=== PATIENT | female | born 1980 | race Hispanic/Latino ===

== ENCOUNTER 2024-04-30 11:11 | Emergency (ER) | payer BC ==
[~2024-04-30] VITALS: Ht 160 cm; Wt 88.9 kg
--- NOTE | 2024-04-30 12:06 | EKG ---
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
[2024-04-30 12:57] LABS: APPEARANCE,URINE CLOUDY (CLEAR); BILIRUBIN,URINE NEGATIVE (NEGATIVE); COLOR,URINE YELLOW (YELLOW); GLUCOSE, URINE (UA) NEGATIVE (NEGATIVE); KETONES,URINE 10 mg/dL (NEGATIVE); LEUKOCYTE ESTERASE ,URINE NEGATIVE Leu/uL (NEGATIVE); NITRATE,URINE NEGATIVE (NEGATIVE); OCCULT BLOOD,URINE MODERATE (NEGATIVE); PH,URINE 7.5 (5.0-8.0); PROTEIN,URINE 70 mg/dL (NEGATIVE); UROBILINOGEN,URINE 0.2 mg/dL (0.2-1.0)
[2024-04-30 12:58] LABS: BASOPHILS # (AUTO) 0.07 K/uL (0.00-0.20); BASOPHILS % (AUTO) 0.6 % (0.0-5.0); EOSINOPHILS # (AUTO) 0.18 K/uL (0.00-0.70); EOSINOPHILS % (AUTO) 1.5 % (0.0-8.0); HEMATOCRIT 32.3 % (36-48); IMMATURE GRANULOCYTE ABSOLUTE 0.05 K/uL (0-1); LYMPHOCYTES # (AUTO) 2.3 K/uL (1.0-4.8); LYMPHOCYTES % (AUTO) 18.5 % (21.0-51.0); MEAN CORPUSCULAR HEMOGLOBIN 25.5 pg (27.0-33.0); MEAN CORPUSCULAR HGB CONC 31.6 g/dL (32.0-36.0); MEAN CORPUSCULAR VOLUME 80.8 fL (79-99); MONOCYTES # (AUTO) 0.7 K/uL (0.1-1.0); NEUTROPHILS # (AUTO) 8.9 K/uL (1.8-7.7); PLATELET COUNT (AUTO) 327 K/uL (130-400); RED CELL DISTRIBUTION WIDTH 15.5 % (11.0-15.5); WHITE BLOOD COUNT (AUTO) 12.2 K/uL (4.8-10.8)
[2024-04-30 13:01] LABS: ADD UA MICROSCOPIC YES
[2024-04-30 13:03] LABS: CREATININE 0.7 mg/dL (0.5-1.0)
[2024-04-30 13:06] LABS: MUCUS,URINE MOD LPF (None Seen); RBC,URINE TNTC /HPF (0-1); SQUAMOUS EPITHELIAL CELL,UR MOD /HPF (0-2)
--- NOTE | 2024-04-30 13:07 | HMCIMG ---
CT HEAD/BRAIN W/O CONTRAST HISTORY: Near syncope COMPARISON: None TECHNIQUE: Multiple sequential axial images of the head were obtained from the base of the skull through vertex. Patient was not given contrast through intravenous route. FINDINGS: The ventricles and extraventricular CSF spaces are nondilated for patient's age. There is no midline shift, mass effect or herniation. No acute intracranial bleed is seen. There is left sphenoid sinus disease with air-fluid level. IMPRESSION: 1. No acute intracranial bleed is seen. CT was performed with one or more following dose reduction techniques: automated exposure control, adjustment of the mA and kv according to patient's size, or use of a iterative reconstruction technique.
[2024-04-30 13:08] LABS: MAGNESIUM 1.6 mg/dL (1.80-2.40)
--- NOTE | 2024-04-30 14:31 | ERN ---
General Chief Complaint: Dizzy/Light Headed Stated Complaint: LEFT BACK PAIN,PASSING OUT Time Seen by MD: 11:35 Time Seen by Midlevel: 11:35 Source: patient History of Present Illness Initial Comments Patient is a 43-year-old female presenting to the emergency department after a near-syncope episode that occurred earlier today. Patient was seen at [facility] earlier this week and was found to have a left ureter stone. She was started on tamsulosin and ketorolac. She reports taking one dose today and shortly after started having dizzy spells and had a near-syncope episode. Denies any chest pain, shortness of breath, or any other symptoms. Allergies: Coded Allergies: No Known Allergies (Unverified Allergy, Unknown, 04/30/24) Past Medical History Past Medical History: Depression, Kidney Stone Past Surgical History: BTL Female( History) LMP: Apr 27, 2024 ROS Dictation CONSTITUTIONAL: Negative except for HPI HEAD/FACE: Negative except for HPI EENT: Negative except for HPI RESPIRATORY: Negative except for HPI GASTROINTESTINAL/ABDOMINAL: Negative except for HPI GENITOURINARY: Negative except for HPI MUSCULOSKELETAL: Negative except for HPI INTEGUMENTARY: Negative except for HPI NEUROLOGICAL/PSYCH: Negative except for HPI HEMATOLOGIC/LYMPHATIC: Negative except for HPI All Systems Negative, Except as noted above. 13 point review of systems assessed and all negative except for above. Physical Exam Physical Exam Dictation Vital Signs reviewed General Appearance: Alert, oriented x 3, no acute distress, well developed, nourished. Head and Face: non-traumatic. Eyes: PERRL, pink conjunctivas, eyelid no trauma, anterior chamber with arcus senilis. Ears: Pinnas intact and no signs of trauma or erythema ear canals clear and no discharge TM no erythema Nose: No discharge, no bleeding. Oropharynx: Mouth normal, tongue pink, pharynx clear,no erythema, tonsils no exudates, no abscesses noted, mucous membrane moist Neck: Supple, non-tender, no thyromegaly, no masses, no JVD, no bruits Breast:Deferred Chest:No tenderness, no crepitus, no paradoxical movement, no retractions Lungs:Clear, well-ventilated, symmetric, no rales, no wheezing, no rhonchi, no stridor, good breath sounds bilaterally Heart: Regular rate, regular rhythm, no murmur, no gallops Vascular: no peripheral edema, Abdomen: Soft, positive bowel sounds, nondistended, no guarding, nontender, no rebound, no masses no hepatomegaly, no splenomegaly, no Hendrix's sign, no hernias. Rectal: Deferred Genital: Deferred Neurological: Normal speech, motor function intact, sensory function intact Musculoskeletal: Neck nontender, full range of motion, back nontender, full range of motion, Extremities: nontender, full range of motion Skin: Color pink, dry, no turgor, no rash, no lacerations, no abrasions, no contusions. Lymphatic: Deferred Results Laboratory and Microbiology Lab and Micro Result Laboratory Tests Test 04/30/24 12:40 White Blood Count 12.2 K/uL (4.8-10.8) H Red Blood Count 4.00 MIL/uL (4.00-5.50) Hemoglobin 10.2 g/dL (12.0-16.0) L Hematocrit 32.3 % (36-48) L Mean Corpuscular Volume 80.8 fL (79-99) Mean Corpuscular Hemoglobin 25.5 pg (27.0-33.0) L Mean Corpuscular Hemoglobin Concent 31.6 g/dL (32.0-36.0) L Red Cell Distribution Width 15.5 % (11.0-15.5) Platelet Count 327 K/uL (130-400) Mean Platelet Volume 11.8 fL (7.5-10.5) H Immature Granulocyte % (Auto) 0.4 % (0-1) Neutrophils (%) (Auto) 73.0 % (40.0-77.0) Lymphocytes (%) (Auto) 18.5 % (21.0-51.0) L Monocytes (%) (Auto) 6.0 % (3.0-13.0) Eosinophils (%) (Auto) 1.5 % (0.0-8.0) Basophils (%) (Auto) 0.6 % (0.0-5.0) Neutrophils # (Auto) 8.9 K/uL (1.8-7.7) H Lymphocytes # (Auto) 2.3 K/uL (1.0-4.8) Monocytes # (Auto) 0.7 K/uL (0.1-1.0) Eosinophils # (Auto) 0.18 K/uL (0.00-0.70) Basophils # (Auto) 0.07 K/uL (0.00-0.20) Absolute Immature Granulocyte (auto 0.05 K/uL (0-1) Nucleated Red Blood Cells 0.0 % (0.0-0.19) Urine Color YELLOW (YELLOW) Urine Appearance CLOUDY (CLEAR) H Urine pH 7.5 (5.0-8.0) Urine Specific [place] 1.028 (1.001-1.031) Urine Protein 70 mg/dL (NEGATIVE) H Urine Glucose (UA) NEGATIVE mg/dL (NEGATIVE) Urine Ketones 10 mg/dL (NEGATIVE) H Urine Occult Blood MODERATE (NEGATIVE) H Urine Nitrate NEGATIVE (NEGATIVE) Urine Bilirubin NEGATIVE mg/dL (NEGATIVE) Urine Urobilinogen 0.2 mg/dL (0.2-1.0) Urine Leukocyte Esterase NEGATIVE Jorge/uL Urine RBC TNTC /HPF (0-1) H Urine WBC 2-5 /HPF (0-1) H Urine Squamous Epithelial Cells MOD /HPF (0-2) Urine Bacteria None /HPF (None Seen) Sodium Level 140 mmol/L (136-145) Potassium Level 4.0 mmol/L (3.5-5.1) Chloride Level 102 mmol/L (101-111) Carbon Dioxide Level 32 mmol/L (21-32) Blood Urea Nitrogen 13 mg/dL (7-18) Creatinine 0.7 mg/dL (0.5-1.0) Glomerular Filtration Rate Calc 111 mL/min (>90) Random Glucose 99 mg/dL (70-105) Total Calcium 9.5 mg/dL (8.5-10.1) Magnesium Level 1.60 mg/dL (1.80-2.40) L Total Creatine Kinase 72 U/L (21-232) Labs Reviewed?: Yes MDM MDM: Differential diagnosis: Anemia, urinary tract infection, dehydration, intracranial bleed, medication reaction There are no social concerns with this patient. Prescription drug management Prescriptions will include: None Medical management and examination interpretation discussions were had by me with other qualified healthcare professionals as indicated for the patient's care. ED Course Orders Procedure Category Date Status Time 12 Lead Ekg Tracing- EKG 04/30/24 Complete Technical 11:58 Cbc With Differential LAB 04/30/24 Complete 11:58 Basic Metabolic Panel LAB 04/30/24 Complete 11:58 Creatine Kinase, Total LAB 04/30/24 Complete 11:58 Urinalysis Profile LAB 04/30/24 Complete 11:58 Magnesium LAB 04/30/24 Complete 11:58 Ct Head/Brain W/O CT 04/30/24 Resulted Contrast 11:58 Vital Signs Date Time Temp Pulse Resp B/P (MAP) Pulse Ox O2 Delivery O2 Flow Rate FiO2 04/30/24 12:00 98.2 64 16 124/80 98 Room Air* 0 21 04/30/24 11:23 98.1 91 16 118/81 100 Room Air 0 DX & DISP Disposition: Discharge Departure Impression: Primary Impression: Medication reaction Additional Impressions: Dizziness, Near syncope Condition: Stable Additional Instructions: Blood work today is stable. Your symptoms are most likely related to a medication reaction. Follow up with your primary care doctor in 2-3 days for repeat evaluation. Return to the ER for any new or worsening symptoms Referrals: BAN BECKWITH PA-C (PCP) Time of Disposition: 14:29 I have reviewed the case, and I agree with, Diagnosis and Plan I performed the substantive portion of the visit. I have reviewed and personally made and approve the management plan that is documented in the note by myself or the ANASTASIYA. I acknowledge for responsibility for the patient's management plan. OSKAR TOURE Apr 30, 2024 14:31
[2024-04-30 15:00] VITALS: BP 117/78; PULSE 82; RESP 18; TEMP 98.6; O2SAT 98
== END 2024-04-30 15:18 | disposition home or self-care (01) ==
LOC: EDH 11:11
DX: R42 Dizziness and giddiness (principal); R55 Syncope and collapse; T39.8X5A Adverse effect of other nonopioid analgesics and antipyretics, not elsewhere classified, initial encounter; M54.50 Low back pain, unspecified; Z98.51 Tubal ligation status; Y92.89 Other specified places as the place of occurrence of the external cause
CPT/HCPCS: 36415; 70450; 80048; 81001; 82550; 83735; 85025; 93005; 99284

== ENCOUNTER 2024-09-08 21:45 | Emergency (ER) | payer BC ==
[~2024-09-08] VITALS: Ht 160 cm; Wt 91.6 kg
[~2024-09-08 21:45] MED LIST: DULO60CA64 PO; TAMS-55 PO
[2024-09-08] MEDS: ondanSETRON 4MG INJ ONE (22:25)
[2024-09-08] MEDS: ondanSETRON 4MG INJ IVP ONE (22:27)
[2024-09-08] MEDS: 0.9%NACL 1000ML 1,000 ML IV ONE (22:39)
[2024-09-08] MEDS: morPHINE 4 MG SYG IM ONE (22:40)
[2024-09-08 22:42] LABS: BASOPHILS # (AUTO) 0.09 K/uL (0.00-0.20); BASOPHILS % (AUTO) 0.6 % (0.0-5.0); EOSINOPHILS # (AUTO) 0.24 K/uL (0.00-0.70); EOSINOPHILS % (AUTO) 1.7 % (0.0-8.0); HEMATOCRIT 33.2 % (36-48); IMMATURE GRANULOCYTE ABSOLUTE 0.12 K/uL (0-1); LYMPHOCYTES # (AUTO) 1.9 K/uL (1.0-4.8); LYMPHOCYTES % (AUTO) 13.7 % (21.0-51.0); MEAN CORPUSCULAR HEMOGLOBIN 25.4 pg (27.0-33.0); MEAN CORPUSCULAR HGB CONC 31.3 g/dL (32.0-36.0); MONOCYTES # (AUTO) 0.9 K/uL (0.1-1.0); MONOCYTES % (AUTO) 6.1 % (3.0-13.0); NEUTROPHILS # (AUTO) 10.9 K/uL (1.8-7.7); PLATELET COUNT (AUTO) 309 K/uL (130-400); RED CELL DISTRIBUTION WIDTH 19.1 % (11.0-15.5); WHITE BLOOD COUNT (AUTO) 14.1 K/uL (4.8-10.8)
[2024-09-08 23:05] LABS: CREATININE 0.7 mg/dL (0.5-1.0); POTASSIUM 4.3 mmol/L (3.5-5.1)
[2024-09-09] MEDS: cefTRIAXone 1G VIAL IVPB ONE (00:16)
[2024-09-09] MEDS: 0.9%NACL 1000ML 1,000 ML IV ONE (00:16)
[2024-09-09 00:37] LABS: ADD UA MICROSCOPIC YES; APPEARANCE,URINE CLOUDY (CLEAR); BILIRUBIN,URINE NEGATIVE (NEGATIVE); COLOR,URINE YELLOW (YELLOW); GLUCOSE, URINE (UA) NEGATIVE (NEGATIVE); KETONES,URINE 5 mg/dL (NEGATIVE); LEUKOCYTE ESTERASE ,URINE 250 Leu/uL (NEGATIVE); NITRATE,URINE NEGATIVE (NEGATIVE); OCCULT BLOOD,URINE LARGE (NEGATIVE); PROTEIN,URINE 200 mg/dL (NEGATIVE); UROBILINOGEN,URINE 0.2 mg/dL (0.2-1.0)
[2024-09-09 00:49] LABS: BACTERIA,URINE MOD /HPF (None Seen); MUCUS,URINE MANY LPF (None Seen); RBC,URINE TNTC /HPF (0-1); SQUAMOUS EPITHELIAL CELL,UR RARE /HPF (0-2)
--- NOTE | 2024-09-09 01:12 | ERN ---
ED Note History of Present Illness Stated Complaint: LLQ PAIN ONSET 1200 Chief Complaint: Abdominal Pain Time Seen by MD: 22:20 Time Seen by Midlevel: 22:21 Dictation: 43-year-old female presents to the emergency department due to reported having pain to the left lateral chest wall area and flank which he takes a deep breath. Patient states that the onset of the symptoms was today at 12:00 p.m.. She states that she does have a nephrostomy tube and does not know whether or not this might be related to it. Patient reports having some chills but no confirmed fever. Today, she denies having any chest pressure or shortness of breath. She states that she is pending for referral by her PCP to have the nephrostomy tube removed. Upon initial evaluation, the patient presents mildly uncomfortable looking. Allergies: Coded Allergies: No Known Allergies (Unverified Allergy, Unknown, 04/30/24) Emergency Care OBSERVER HELPER: None Home Meds Active Scripts Tamsulosin HCl (Flomax) 0.4 Mg Cap.er.24h, 1 CAP PO DAILY for 30 Days, #30 CAP 0 Refills Prov:JOHANNE SHELTON MD 08/31/24 Reported Medications Duloxetine HCl (Duloxetine HCl) 60 Mg Capsule.dr, 1 CAP PO DAILY for 30 Days, #30 CAP 0 Refills 08/30/24 Past Medical History Past Medical History: Depression, Kidney Stone Additional Past Medical Hx: L NEPHROSTOMY TUBE Surgical History: BTL LMP: September 08, 2024 RN Note Reviewed/Agreed w/PFSH: Yes Review of System Dictation Cardiovascular: Left lateral chest wall pain Respiratory: Painful breathing Abdomen/GI: Left flank pain Initial Vital Sign VS Vital Signs Date Time Temp Pulse Resp B/P (MAP) Pulse Ox O2 Delivery O2 Flow Rate FiO2 09/08/24 21:50 99.9 117 18 151/112 99 0 Physical Exam Dictation General: awake, alert, NAD Head/Face: Normocephalic, atraumatic Eyes: PERRL, EOMI ENT: Oral mucosa moist Neck: Trachea midline, supple Cardiovascular: RRR, no edema Chest: Left lateral wall tenderness Respiratory: Symmetrical, non-labored Abdomen: Soft, non-tender, non-distended, no guarding. Skin: Warm, dry, good turgor, no rash MS/Extremity: Pulses equal, no cyanosis, neurovascular intact, FROM Neuro: COAx4, GCS 15, steady gait, Psych: Normal behavior, mood, and affect normal Results (Laboratory/Radiology) Laboratory/Radiology Laboratory Tests Test 09/08/24 22:32 09/08/24 23:22 09/09/24 00:22 White Blood Count 14.1 K/uL (4.8-10.8) H Red Blood Count 4.10 MIL/uL (4.00-5.50) Hemoglobin 10.4 g/dL (12.0-16.0) L Hematocrit 33.2 % (36-48) L Mean Corpuscular Volume 81.0 fL (79-99) Mean Corpuscular Hemoglobin 25.4 pg (27.0-33.0) L Mean Corpuscular Hemoglobin Concent 31.3 g/dL (32.0-36.0) L Red Cell Distribution Width 19.1 % (11.0-15.5) H Platelet Count 309 K/uL (130-400) Mean Platelet Volume 11.6 fL (7.5-10.5) H Immature Granulocyte % (Auto) 0.9 % (0-1) Neutrophils (%) (Auto) 77.0 % (40.0-77.0) Lymphocytes (%) (Auto) 13.7 % (21.0-51.0) L Monocytes (%) (Auto) 6.1 % (3.0-13.0) Eosinophils (%) (Auto) 1.7 % (0.0-8.0) Basophils (%) (Auto) 0.6 % (0.0-5.0) Neutrophils # (Auto) 10.9 K/uL (1.8-7.7) H Lymphocytes # (Auto) 1.9 K/uL (1.0-4.8) Monocytes # (Auto) 0.9 K/uL (0.1-1.0) Eosinophils # (Auto) 0.24 K/uL (0.00-0.70) Basophils # (Auto) 0.09 K/uL (0.00-0.20) Absolute Immature Granulocyte (auto 0.12 K/uL (0-1) Nucleated Red Blood Cells 0.0 % (0.0-0.19) Red Blood Cell Morphology See comments Sodium Level 138 mmol/L (136-145) Potassium Level 4.3 mmol/L (3.5-5.1) Chloride Level 104 mmol/L (101-111) Carbon Dioxide Level 24 mmol/L (21-32) Blood Urea Nitrogen 18 mg/dL (7-18) Creatinine 0.7 mg/dL (0.5-1.0) Glomerular Filtration Rate Calc 111 mL/min (>90) Random Glucose 101 mg/dL (70-105) Total Calcium 9.3 mg/dL (8.5-10.1) Troponin I High Sensitivity < 4 ng/L (4-50) L Serum Test, Qualitative NEGATIVE (NEGATIVE) Urine Color YELLOW (YELLOW) Urine Appearance CLOUDY (CLEAR) H Urine pH 6.0 (5.0-8.0) Urine Specific [place] 1.029 (1.001-1.031) Urine Protein 200 mg/dL (NEGATIVE) H Urine Glucose (UA) NEGATIVE mg/dL (NEGATIVE) Urine Ketones 5 mg/dL (NEGATIVE) H Urine Occult Blood LARGE (NEGATIVE) H Urine Nitrate NEGATIVE (NEGATIVE) Urine Bilirubin NEGATIVE mg/dL (NEGATIVE) Urine Urobilinogen 0.2 mg/dL (0.2-1.0) Urine Leukocyte Esterase 250 Jorge/uL (NEGATIVE) H Urine RBC TNTC /HPF (0-1) H Urine WBC 11-25 /HPF (0-1) H Urine Squamous Epithelial Cells RARE /HPF (0-2) Urine Bacteria MOD /HPF (None Seen) Labs Reviewed?: Yes CT Scan Comment: CT chest/abdomen/pelvis without contrast. No abnormalities noted to the chest. CT abdomen without pelvis without contrast with a persistent left mid ureteral cm stone without hydronephrosis ED Course ED Course Orders Procedure Category Date Status Time Ondansetron 4mg Inj PHA 09/08/24 Complete (Zofran 4mg Inj) 22:30 Cbc With Differential LAB 09/08/24 Complete 22:14 Basic Metabolic Panel LAB 09/08/24 Complete 22:14 Urinalysis Profile LAB 09/08/24 Complete 22:14 Ondansetron 4mg Inj PHA 09/08/24 Complete (Zofran 4mg Inj) 22:16 Troponin I High LAB 09/08/24 Complete Sensitivity 22:30 Chest 1vw RAD 09/08/24 Taken 22:30 Morphine 4mg Syg PHA 09/08/24 Complete (Morphine 4mg Syg) 23:00 0.9%Nacl 1000ml (Ns PHA 09/08/24 Complete 1000ml) 23:00 Testing, LAB 09/08/24 Complete Serum Hcg 23:09 Ct Chest/Abd/Pelv W/O CT 09/08/24 Taken Contrast 23:51 Ceftriaxone 1g Vial PHA 09/09/24 Complete (Rocephine 1g Inj) 00:00 0.9%Nacl 1000ml (Ns PHA 09/09/24 Complete 1000ml) 00:00 Culture Urine MIESHA 09/09/24 In Process 00:37 Current Medications Medications (Trade) Dose Ordered Sig/Theodore Route PRN Reason Start Time Stop Time Status Last Admin Dose Admin Ceftriaxone Sodium (ROCEphine 1G INJ) 1 gm ONCE ONCE IVPB 09/09/24 00:00 09/09/24 00:01 DC 09/09/24 00:16 Morphine Sulfate (morPHINE 4MG SYG) 4 mg ONCE ONCE IM 09/08/24 23:00 09/08/24 23:01 DC 09/08/24 22:40 Ondansetron HCl (zoFRAN 4MG INJ) 4 mg ONCE ONCE IVP 09/08/24 22:30 09/08/24 22:31 DC 09/08/24 22:27 Ondansetron HCl (zoFRAN 4MG INJ) 4 mg STK-MED ONCE .ROUTE 09/08/24 22:16 09/08/24 22:18 DC Sodium Chloride 1,000 ml @ 0 mls/hr ONCE ONCE IV 09/08/24 23:00 09/08/24 23:01 DC 09/08/24 22:39 Sodium Chloride 1,000 ml @ 0 mls/hr ONCE ONCE IV 09/09/24 00:00 09/09/24 00:01 DC 09/09/24 00:16 Vital Signs Date Time Temp Pulse Resp B/P (MAP) Pulse Ox O2 Delivery O2 Flow Rate FiO2 09/08/24 21:50 99.9 117 18 151/112 99 0 Medical Decision Making MDM MDM: Differential diagnosis: Chest wall pain, chest wall strain, hydronephrosis. Rationale: Tests considered and ordered secondary to shared decision making include: Previous outside records reviewed: Old ER visits. Risk of complication and/or morbidity or mortality of patient management: None Medications-Per medication reconciliation Need for hospitalization: Patient does not meet criteria for hospitalization. Need for emergency major/minor surgery: No There are no social concerns with this patient. Prescription drug management Prescriptions will include symptomatic care Patient's prior external medical records from other ER visits were reviewed by me as indicated. Prior testing and results from previous visits were reviewed. Prior tests were taken into account with medical decision making and resource utilization, independent historian/historians were used to obtain complete medical history. I independently interpreted the test that were performed, results were reviewed by me and considered findings on radiology if ordered. Medical management and examination interpretation discussions were had by me with other qualified healthcare professionals as indicated for the patient's care. DX & DISP Disposition: Discharge Departure Impression: Primary Impression: Acute UTI Additional Impression: Left ureteral stone Condition: Stable Scripts Cephalexin Monohydrate (Keflex) 500 Mg Cap 500 MG PO BID for 7 Days, #14 CAP Prov: NIEVES HORTON 09/09/24 Referrals: BAN BECKWITH PA-C (PCP) NIEVES HORTON September 09, 2024 01:12
[2024-09-09 01:15] VITALS: BP 116/71; PULSE 91; RESP 18; TEMP 98.5; O2SAT 100
[2024-09-09] MEDS ORDERED: CEPH500B PO (01:16)
--- NOTE | 2024-09-09 04:43 | HMCIMG ---
CT CHEST/ABD/PELV W/O CONTRAST HISTORY: Pain COMPARISON: None TECHNIQUE: Multiple sequential axial images of the chest were obtained from the thoracic inlet through upper abdomen. Patient was not given contrast through intravenous route. FINDINGS: There is no evidence of pulmonary nodule or parenchymal disease. No pleural effusion or pericardial effusion is seen. There is no evidence of pneumothorax. There are normal size mediastinal and hilar lymph nodes. The heart is not enlarged. Degenerative changes of the thoracolumbar spine are present. There is no evidence of adrenal nodule. IMPRESSION: 1. No evidence of pulmonary nodule or effusion is seen. CT CHEST/ABD/PELV W/O CONTRAST HISTORY: Pain COMPARISON: 08/30/1999 TECHNIQUE: Multiple sequential axial images of the abdomen and pelvis were obtained from the dome of the diaphragm through symphysis pubis. Patient was not given contrast through intravenous route. Oral contrast was not given. FINDINGS: The liver, spleen, adrenal glands and pancreas are unremarkable. There is no evidence of hydronephrosis bilaterally. There is a left nephrostomy tube. There is 7 mm left mid ureter stone without hydronephrosis. Fecal material is seen in the colon. There are normal size retroperitoneal and mesenteric lymph nodes. No ascites is seen. Atherosclerotic changes are present. Pelvic sidewalls are symmetric bilaterally. Bladder is well distended without wall thickening. IMPRESSION: 1. Left nephrostomy tube. 7 mm left mid ureter stone without hydronephrosis. CT was performed with one or more following dose reduction techniques: automated exposure control, adjustment of the mA and kv according to patient's size, or use of a iterative reconstruction technique.
--- NOTE | 2024-09-09 08:26 | HMCIMG ---
PORTABLE CHEST RADIOGRAPH INDICATION: pain COMPARISON: 08/29/2024 FINDINGS: Shallow inspiration Heart size is normal. The pulmonary vascularity and richard appear normal. No abnormal pulmonary parenchymal opacity or consolidation identified. No significant pleural effusion noted. No pneumothorax detected. IMPRESSION: Shallow inspiration without radiographic evidence for any acute cardiopulmonary process.
== END 2024-09-09 01:26 | disposition home or self-care (01) ==
LOC: EDH 21:45
DX: N39.0 Urinary tract infection, site not specified (principal); N20.1 Calculus of ureter; Z98.51 Tubal ligation status
CPT/HCPCS: 99285; 71250; 96374; 71045; 96375; 84484; 80048; 84703; 85025; 87086 ×2; 87186; 81001; 36415; 74176; 96372; J7030 ×2; J2405; J2270; J0696; 99284